=== PATIENT | male | born 1995 | race American Indian/Alaskan Native ===

== ENCOUNTER 2021-09-24 12:25 | Emergency (ER) | payer SELFPAY ==
[2021-09-24 13:59] VITALS: BP 137/88
== END 2021-09-24 20:45 | disposition left against medical advice (07) ==
LOC: ED 12:25
DX: Z20.2 Contact with and (suspected) exposure to infections with a predominantly sexual mode of transmission (principal); Z53.21 Procedure and treatment not carried out due to patient leaving prior to being seen by health care provider